=== PATIENT | female | born 1980 | race Caucasian/White ===

== ENCOUNTER 2016-09-06 02:44 | Emergency (ER) | payer BC, OTHER ==
[2016-09-06 02:55] VITALS: BP 120/92; PULSE 92; RESP 20; TEMP 97.4
[2016-09-06] MEDS ORDERED: FAMOTIDINE 20 MG TAB PO STA (03:42)
[2016-09-06] MEDS ORDERED: hydrOXYzine PAMOATE 25 MG CAP PO STA (03:43)
[2016-09-06] MEDS ORDERED: HYDROcodone/APAP 10-325MG 1 EACH TAB PO ONE (03:43)
[2016-09-06] MEDS ORDERED: MECLIZINE 12.5 MG TAB PO STA (03:43)
[2016-09-06] MEDS ORDERED: predniSONE 50 MG TAB PO STA (03:51)
--- NOTE | 2016-09-06 03:51 | ED ---
General Adult HPI - General Chief complaint: Skin/Abscess/Foreign Body Stated complaint: dizziness Time Seen by Provider: 09/06/16 03:25 Source: patient, RN notes reviewed Mode of arrival: ambulatory Limitations: no limitations - History of Present Illness Initial comments: This is a 35-year-old female history of psoriasis who presents with several complaints today. She states she had a lot of cerumen in her ears and she did use a candidal through a lot of the wax. This was about 4 days ago she's had some feeling of dizziness and been off balance since she also complains of hives that started after she had a dispute with a friend's boyfriend yesterday. She states she has burning and redness to her skin she does states she gets this when she is stressed she also complains of pain to both feet discuss the left from her psoriasis. She did run out of her pain medication. She denies any fevers chills or sweats. - Related Data Home Medications Medication Instructions Recorded Confirmed ALPRAZolam [Xanax] 1 mg PO BID 11/25/14 02/21/16 ALPRAZolam [ALPRAZolam] 1 mg PO HS PRN 02/21/16 02/21/16 Dextroamphetamine/Amphetamine 30 mg PO DAILY 02/21/16 09/06/16 [Adderall Xr] Gabapentin [Gabapentin] 600 mg PO QID 02/21/16 09/06/16 OXcarbazepine [Oxcarbazepine] 150 mg PO DAILY 02/21/16 09/06/16 PARoxetine HCL [Paxil] 40 mg PO DAILY 02/21/16 09/06/16 Previous Rx's Medication Instructions Recorded Cyclobenzaprine [Flexeril] 10 mg PO TID PRN #15 tab 02/21/16 HYDROcodone/APAP 10-325MG [[place] 1 tab PO Q6H PRN #20 tab 09/06/16 10-325] Meclizine [Antivert] 25 mg PO TID #20 tab 09/06/16 hydrOXYzine HCL [Atarax] 25 mg PO QID PRN #30 tab 09/06/16 predniSONE 20 mg PO BID #10 tab 09/06/16 Allergies Allergy/AdvReac Type Severity Reaction Status Date / Time amoxicillin Allergy Unknown Verified 09/06/16 02:55 aripiprazole [From Abilify] Allergy Unknown Verified 09/06/16 02:55 ibuprofen [From Motrin] AdvReac Unknown Verified 09/06/16 02:55 Review of Systems ROS Statement: Those systems with pertinent positive or pertinent negative responses have been documented in the HPI. ROS Other: All systems not noted in ROS Statement are negative. Past Medical History Past Medical History: No Reported History, Skin Disorder Additional Past Medical History / Comment(s): carpel tunnel (L) wrist. bells palsey, psoriasis History of Any Multi-Drug Resistant Organisms: None Reported Past Surgical History: No Surgical Hx Reported Past Psychological History: ADD/ADHD, Anxiety, Bipolar Smoking Status: Current every day smoker Past Alcohol Use History: Occasional Past Drug Use History: None Reported General Exam - General Exam Comments Initial Comments: Is a well-developed well-nourished awake alert oriented history female Limitations: no limitations General appearance: alert, in no apparent distress, anxious Head exam: Present: atraumatic, normocephalic, normal inspection Eye exam: Present: normal appearance, PERRL, EOMI. Absent: scleral icterus, conjunctival injection, periorbital swelling ENT exam: Present: mucous membranes moist, other (Examination of the auditory canals reveals some cerumen is present. No drainage seen otherwise.) Neck exam: Present: normal inspection. Absent: tenderness, meningismus, lymphadenopathy Respiratory exam: Present: normal lung sounds bilaterally. Absent: respiratory distress, wheezes, rales, rhonchi, stridor Cardiovascular Exam: Present: regular rate, normal rhythm, normal heart sounds. Absent: systolic murmur, diastolic murmur, rubs, gallop, clicks Extremities exam: Present: full ROM, tenderness, normal capillary refill, other (A marked amount of callus noted on the heels and feet consistent with severe psoriasis. No definite open wounds are seen though she did complain cracks in the skin.) Back exam: Absent: tenderness Neurological exam: Present: alert, oriented X3, CN II-XII intact Psychiatric exam: Present: normal affect, normal mood Skin exam: Present: warm, dry, other (Her theme as noted also the lichenification is noted on the feet) Course Vital Signs 09/06/16 02:49 Temperature 97.4 F L Pulse Rate 92 Respiratory 20 Rate Blood Pressure 120/92 O2 Sat by Pulse 99 Oximetry Medical Decision Making - Medical Decision Making Patient will be placed on treatment for the hives and pain that she has her feet. She is a follow-up with her doctor return when necessary. Patient wants to try using candles in her ears again she will do this at home. Some of the presentation is consistent with vertigo Disposition Clinical Impression: Urticaria, Vertigo, Foot pain, bilateral, Psoriasis Disposition: HOME SELF-CARE Condition: Good Instructions: Vertigo (ED), Benign Paroxysmal Positional Vertigo (ED), Urticaria (ED), Arthralgia (ED), Psoriasis (ED) Prescriptions: HYDROcodone/APAP 10-325MG [[place] 10-325] 1 tab PO Q6H PRN #20 tab PRN Reason: Pain Meclizine [Antivert] 25 mg PO TID #20 tab hydrOXYzine HCL [Atarax] 25 mg PO QID PRN #30 tab PRN Reason: Rash predniSONE 20 mg PO BID #10 tab
== END 2016-09-06 04:02 | disposition home or self-care (01) ==
LOC: EC 02:44
DX: R42 Dizziness and giddiness (principal); L50.9 Urticaria, unspecified; L40.9 Psoriasis, unspecified; M79.672 Pain in left foot; M79.671 Pain in right foot; F31.9 Bipolar disorder, unspecified; F90.9 Attention-deficit hyperactivity disorder, unspecified type; F41.9 Anxiety disorder, unspecified; F17.200 Nicotine dependence, unspecified, uncomplicated; Z79.899 Other long term (current) drug therapy; Z88.0 Allergy status to penicillin; Z88.8 Allergy status to other drugs, medicaments and biological substances
CPT/HCPCS: 99283; J7512

== ENCOUNTER 2016-12-31 18:36 | Emergency (ER) | payer BC ==
[2016-12-31 19:00] VITALS: BP 194/96; PULSE 93; RESP 18; TEMP 97.8
--- NOTE | 2016-12-31 19:20 | ED ---
General Adult HPI - General Chief complaint: Extremity Problem,Nontraumatic Stated complaint: PAIN IN FEET AND BACK Time Seen by Provider: 12/31/16 19:01 Source: patient, RN notes reviewed Mode of arrival: ambulatory Limitations: no limitations - History of Present Illness Initial comments: 36-year-old female presented emergency department with chief complaint of chronic pain. Patient is chronically pain, back pain. Patient states that she' s had increased pain last few days with no injury. Patient denies any bowel bladder incontinence or retention. Patient states she has feet pain from Ross bite. Patient states that she has low back pain in which she uses see pain management. Patient denies any abdominal pain no chest pain or shortness breath. - Related Data Home Medications Medication Instructions Recorded Confirmed ALPRAZolam [Xanax] 1 mg PO BID 11/25/14 02/21/16 ALPRAZolam [ALPRAZolam] 1 mg PO HS PRN 02/21/16 02/21/16 Dextroamphetamine/Amphetamine 30 mg PO DAILY 02/21/16 09/06/16 [Adderall Xr] Gabapentin [Gabapentin] 600 mg PO QID 02/21/16 09/06/16 OXcarbazepine [Oxcarbazepine] 150 mg PO DAILY 02/21/16 09/06/16 PARoxetine HCL [Paxil] 40 mg PO DAILY 02/21/16 09/06/16 Previous Rx's Medication Instructions Recorded Cyclobenzaprine [Flexeril] 10 mg PO TID PRN #15 tab 02/21/16 HYDROcodone/APAP 10-325MG [[place] 1 tab PO Q6H PRN #20 tab 09/06/16 10-325] Meclizine [Antivert] 25 mg PO TID #20 tab 09/06/16 hydrOXYzine HCL [Atarax] 25 mg PO QID PRN #30 tab 09/06/16 predniSONE 20 mg PO BID #10 tab 09/06/16 Acetaminophen-Codeine 300-30mg 1 tab PO Q4H PRN #20 tablet 12/31/16 [Tylenol #3] methylPREDNISolone [Medrol Dose 4 mg PO DIRECTED #1 pack 12/31/16 Pack] Allergies Allergy/AdvReac Type Severity Reaction Status Date / Time amoxicillin Allergy Unknown Verified 12/31/16 19:00 aripiprazole [From Abilify] Allergy Unknown Verified 12/31/16 19:00 ibuprofen [From Motrin] AdvReac Unknown Verified 12/31/16 19:00 Review of Systems ROS Statement: Those systems with pertinent positive or pertinent negative responses have been documented in the HPI. ROS Other: All systems not noted in ROS Statement are negative. Past Medical History Past Medical History: No Reported History, Skin Disorder Additional Past Medical History / Comment(s): carpel tunnel (L) wrist. bells palsey, psoriasis History of Any Multi-Drug Resistant Organisms: None Reported Past Surgical History: No Surgical Hx Reported Past Psychological History: ADD/ADHD, Anxiety, Bipolar Smoking Status: Current every day smoker Past Alcohol Use History: Occasional Past Drug Use History: None Reported, Marijuana General Exam Limitations: no limitations General appearance: alert, in no apparent distress Head exam: Present: atraumatic, normocephalic, normal inspection Respiratory exam: Present: normal lung sounds bilaterally. Absent: respiratory distress, wheezes, rales, rhonchi, stridor Cardiovascular Exam: Present: regular rate, normal rhythm, normal heart sounds. Absent: systolic murmur, diastolic murmur, rubs, gallop, clicks GI/Abdominal exam: Present: soft, normal bowel sounds. Absent: distended, tenderness, guarding, rebound, rigid Extremities exam: Present: other (Bilateral feet extensive callus seen with no lesions or sores neurovascular intact patient is full strength of lower extremities, ) Back exam: Present: full ROM Neurological exam: Present: reflexes normal. Absent: motor sensory deficit Skin exam: Present: warm, dry, intact, normal color. Absent: rash Course Vital Signs 12/31/16 18:57 Temperature 97.8 F Pulse Rate 93 Respiratory 18 Rate Blood Pressure 194/96 O2 Sat by Pulse 100 Oximetry Medical Decision Making - Medical Decision Making 36-year-old female presented emergency department for chronic pain. Patient is no acute injuries and no neurological deficits. Patient has no red flag symptoms. Patient denies that she see her primary care physician for management of her chronic conditions is no acute conditions at this time. Patient is scheduled to see pain management. Disposition Clinical Impression: Chronic pain Disposition: HOME SELF-CARE Condition: Stable Instructions: Chronic Back Pain (ED) Additional Instructions: Please return to the Emergency Department if symptoms worsen or any other concerns. Prescriptions: Acetaminophen-Codeine 300-30mg [Tylenol #3] 1 tab PO Q4H PRN #20 tablet PRN Reason: pain methylPREDNISolone [Medrol Dose Pack] 4 mg PO DIRECTED #1 pack Referrals: Mark Cha MD [Primary Care Provider] - 1-2 days Time of Disposition: 19:20
== END 2016-12-31 19:26 | disposition home or self-care (01) ==
LOC: EC 18:36
DX: G89.29 Other chronic pain (principal); M54.5 Low back pain; L84 Corns and callosities; F32.9 Major depressive disorder, single episode, unspecified; F41.9 Anxiety disorder, unspecified; F90.9 Attention-deficit hyperactivity disorder, unspecified type; F17.200 Nicotine dependence, unspecified, uncomplicated; Z79.899 Other long term (current) drug therapy; Z88.0 Allergy status to penicillin; Z88.6 Allergy status to analgesic agent; Z88.8 Allergy status to other drugs, medicaments and biological substances
CPT/HCPCS: 99283

== ENCOUNTER 2017-07-19 01:59 | Emergency (ER) | payer OTHER ==
[2017-07-19] MEDS ORDERED: KETOROLAC 60 MG/2 ML VIAL IM STA (02:58)
[2017-07-19] MEDS ORDERED: ORPHENADRINE 30 MG/ML 2 ML VIAL IM STA (02:58)
--- NOTE | 2017-07-19 03:43 | XR ---
EXAM: XR Thoracic Spine, 3 Views CLINICAL HISTORY: Status post trauma. TECHNIQUE: Frontal, lateral and swimmer's views of the thoracic spine. COMPARISON: No relevant prior studies available. FINDINGS: Vertebrae: Unremarkable. No acute fracture. Normal alignment. Disc spaces: No acute findings. No significant narrowing. Soft tissues: Unremarkable. IMPRESSION: Normal thoracic spine x-rays.
--- NOTE | 2017-07-19 03:50 | ED ---
Back Pain HPI - General Chief Complaint: Back Pain/Injury Stated Complaint: fall,back pain Time Seen by Provider: 07/19/17 02:11 Source: patient, RN notes reviewed, old records reviewed Limitations: no limitations - History of Present Illness Initial Comments: Pt is a 36 year old female with CC of acute exacerbation of chronic back pain. Patient had fallen out of her friends truck 2 days ago and twisted her back. She denies any other injury related to the fall. No head injury. Patient reports that she has pain in her mid back and shoulders, worse with movement. She ahs been taking motrin and naproxen with little relief. She diens any other symptoms. - Related Data Previous Rx's Medication Instructions Recorded Omeprazole 40 mg PO DAILY #20 capsule. 06/05/17 Ondansetron Odt [Zofran Odt] 4 mg PO Q8HR PRN #12 tab 06/05/17 Acetaminophen-Codeine 300-30mg 1 tab PO Q6H PRN #12 tablet 07/19/17 [Tylenol #3] Cyclobenzaprine [Flexeril] 10 mg PO TID #12 tab 07/19/17 Ondansetron Odt [Zofran Odt] 4 mg PO Q8HR PRN #12 tab 07/19/17 Allergies Allergy/AdvReac Type Severity Reaction Status Date / Time amoxicillin Allergy Unknown Verified 07/19/17 02:07 aripiprazole [From Abilify] Allergy Unknown Verified 07/19/17 02:07 ibuprofen [From Motrin] AdvReac Unknown Verified 07/19/17 02:07 Review of Systems ROS Statement: Those systems with pertinent positive or pertinent negative responses have been documented in the HPI. ROS Other: All systems not noted in ROS Statement are negative. Past Medical History Past Medical History: No Reported History, Skin Disorder Additional Past Medical History / Comment(s): carpel tunnel (L) wrist. bells palsey, psoriasis, degenerative disc disease. History of Any Multi-Drug Resistant Organisms: None Reported Past Surgical History: No Surgical Hx Reported Past Psychological History: ADD/ADHD, Anxiety, Bipolar Smoking Status: Current every day smoker Past Alcohol Use History: Occasional Past Drug Use History: Marijuana General Exam - General Exam Comments Initial Comments: This is a 36 year old female no distress Limitations: no limitations General appearance: alert, in no apparent distress Head exam: Present: atraumatic, normocephalic, normal inspection Eye exam: Present: normal appearance, PERRL, EOMI. Absent: scleral icterus, conjunctival injection, periorbital swelling ENT exam: Present: normal exam, mucous membranes moist Neck exam: Present: normal inspection. Absent: tenderness, meningismus, lymphadenopathy Respiratory exam: Present: normal lung sounds bilaterally. Absent: respiratory distress, wheezes, rales, rhonchi, stridor Cardiovascular Exam: Present: regular rate, normal rhythm, normal heart sounds. Absent: systolic murmur, diastolic murmur, rubs, gallop, clicks GI/Abdominal exam: Present: soft, normal bowel sounds. Absent: distended, tenderness, guarding, rebound, rigid Extremities exam: Present: normal inspection, full ROM, normal capillary refill. Absent: tenderness, pedal edema, joint swelling, calf tenderness Back exam: Present: normal inspection, tenderness (Patient had mid thoracic tenderness) Neurological exam: Present: alert, oriented X3, CN II-XII intact Psychiatric exam: Present: normal affect, normal mood Skin exam: Present: warm, dry, intact, normal color. Absent: rash Course Vital Signs 07/19/17 07/19/17 02:02 04:11 Temperature 97.5 F L 98.6 F Pulse Rate 102 H 91 Respiratory 17 18 Rate Blood Pressure 136/83 160/88 O2 Sat by Pulse 100 96 Oximetry Medical Decision Making - Medical Decision Making This is a 36 year old female with acute exacerbation of chronic back pain after she fell out of a truck 2 days ago. No paresths=esias, and she has tenderness of her mid thoracic back. Patinet Thoracic spine xrays are unremarkable. She was given Toradol and norflex. Will be discharged with flexeril and pain medication. Discussed return parameters and follow up [facility] PCP. - Radiology Data Radiology results: report reviewed Thoracic spine is within normal limits. Disposition Clinical Impression: Spasm of thoracic back muscle Disposition: HOME SELF-CARE Condition: Good Instructions: Muscle Spasm (ED), Back Pain (ED) Additional Instructions: Patient advised to apply warm compresses over the back for 20 minutes, at least 4-5 times a day. Patient should take the anti-inflammatory medication such as Motrin or Tylenol, he did take muscle fractures and pain medicine as prescribed. Follow-up with primary care physician. Patient emergency department if any alarming signs or symptoms occur. Prescriptions: Acetaminophen-Codeine 300-30mg [Tylenol #3] 1 tab PO Q6H PRN #12 tablet PRN Reason: Pain Cyclobenzaprine [Flexeril] 10 mg PO TID #12 tab Ondansetron Odt [Zofran Odt] 4 mg PO Q8HR PRN #12 tab PRN Reason: Nausea Referrals: None,Stated [Primary Care Provider] - 1-2 days Time of Disposition: 03:48
[2017-07-19] MEDS ORDERED: ACET/COD 300 MG/30 MG STARTER PACK 6 TAB BTL PO STA (03:57)
[2017-07-19] MEDS ORDERED: ONDANSETRON 4 MG ODT STARTER PACK 2 TAB BTL PO STA (03:57)
[2017-07-19 04:14] VITALS: BP 160/88; PULSE 91; RESP 18; TEMP 98.6
== END 2017-07-19 04:13 | disposition home or self-care (01) ==
LOC: EC 01:59
DX: M62.830 Muscle spasm of back (principal); F17.200 Nicotine dependence, unspecified, uncomplicated; Z88.0 Allergy status to penicillin; Z88.6 Allergy status to analgesic agent; Z88.8 Allergy status to other drugs, medicaments and biological substances; X50.1XXA Overexertion from prolonged static or awkward postures, initial encounter
CPT/HCPCS: 72070; 99284; 96372 ×2; J2360; J1885; S0119

== ENCOUNTER 2017-11-06 13:47 | Emergency (ER) | payer OTHER ==
[2017-11-06 14:12] VITALS: RESP 18
[2017-11-06] MEDS ORDERED: KETOROLAC 60 MG/2 ML VIAL IM STA (15:57)
[2017-11-06] MEDS ORDERED: HYDROcodone/APAP 5-325MG 1 EACH TAB PO STA (15:57)
--- NOTE | 2017-11-06 16:31 | ED ---
General Adult HPI - General Chief complaint: Extremity Problem,Nontraumatic Stated complaint: Leg numbness Time Seen by Provider: 11/06/17 15:41 Source: patient Mode of arrival: wheelchair Limitations: no limitations - Related Data Home Medications Medication Instructions Recorded Confirmed ALPRAZolam [Xanax] 1 mg PO TID PRN 11/06/17 11/06/17 Dextroamphetamine/Amphetamine 15 mg PO BID 11/06/17 11/06/17 [Adderall Xr] Gabapentin [Neurontin] 300 mg PO TID 11/06/17 11/06/17 OXcarbazepine [Trileptal] 150 mg PO BID 11/06/17 11/06/17 PARoxetine [Paxil] 20 mg PO DAILY 11/06/17 11/06/17 Previous Rx's Medication Instructions Recorded Sulfamethox-Tmp 800-160Mg [Bactrim 2 tab PO Q12HR #40 tab 11/06/17 DS 800-160 mg] Triamcinolone 0.5% Cream [Kenalog 1 applic TOPICAL BID #1 tube 11/06/17 0.5% Cream] predniSONE 50 mg PO DAILY #5 tab 11/06/17 Allergies Allergy/AdvReac Type Severity Reaction Status Date / Time amoxicillin Allergy Unknown Verified 11/06/17 16:02 aripiprazole [From Abilify] Allergy Unknown Verified 11/06/17 16:02 ibuprofen [From Motrin] AdvReac Unknown Verified 11/06/17 16:02 Review of Systems ROS Statement: Those systems with pertinent positive or pertinent negative responses have been documented in the HPI. ROS Other: All systems not noted in ROS Statement are negative. Past Medical History Past Medical History: Skin Disorder Additional Past Medical History / Comment(s): carpel tunnel (L) wrist. bells palsey, psoriasis, degenerative disc disease. History of Any Multi-Drug Resistant Organisms: None Reported Past Surgical History: No Surgical Hx Reported Past Psychological History: ADD/ADHD, Anxiety, Bipolar, Depression Smoking Status: Current every day smoker Past Alcohol Use History: Occasional Past Drug Use History: Marijuana General Exam Limitations: no limitations General appearance: alert, in no apparent distress Head exam: Present: atraumatic, normocephalic, normal inspection Eye exam: Present: normal appearance, PERRL, EOMI. Absent: scleral icterus, conjunctival injection, periorbital swelling ENT exam: Present: normal exam, mucous membranes moist Neck exam: Present: normal inspection. Absent: tenderness, meningismus, lymphadenopathy Respiratory exam: Present: normal lung sounds bilaterally. Absent: respiratory distress, wheezes, rales, rhonchi, stridor Cardiovascular Exam: Present: regular rate, normal rhythm, normal heart sounds. Absent: systolic murmur, diastolic murmur, rubs, gallop, clicks GI/Abdominal exam: Present: soft, normal bowel sounds. Absent: distended, tenderness, guarding, rebound, rigid Extremities exam: Present: normal inspection, full ROM, normal capillary refill. Absent: tenderness, pedal edema, joint swelling, calf tenderness Back exam: Present: normal inspection Neurological exam: Present: alert, oriented X3, CN II-XII intact Psychiatric exam: Present: normal affect, normal mood Skin exam: Present: warm, dry, intact, normal color. Absent: rash Course Vital Signs 11/06/17 14:06 Temperature 97.9 F Pulse Rate 103 H Respiratory 18 Rate Blood Pressure 149/83 O2 Sat by Pulse 97 Oximetry Medical Decision Making - Lab Data Lab Results 11/06/17 11/06/17 Range/Units 14:48 14:48 Urine Color Yellow Urine Appearance Cloudy H (Clear) Urine pH 5.5 (5.0-8.0) Ur Specific [place] 1.026 (1.001-1.035) Urine Protein 1+ H (Negative) Urine Glucose (UA) Negative (Negative) Urine Ketones Negative (Negative) Urine Blood Moderate H (Negative) Urine Nitrite Negative (Negative) Urine Bilirubin Negative (Negative) Urine Urobilinogen <2.0 (<2.0) mg/dL Ur Leukocyte Esterase Large H (Negative) Urine RBC 2 (0-5) /hpf Urine WBC 25 H (0-5) /hpf Ur Squamous Epith Cells 31 H (0-4) /hpf Urine Bacteria Few H (None) /hpf Urine Mucus Rare H (None) /hpf Urine HCG, Qual Not Detected (Not Detectd) Disposition Clinical Impression: Back pain, Acute exacerbation of chronic low back pain, Psoriasis Disposition: HOME SELF-CARE Condition: Good Instructions: Psoriasis (ED) Prescriptions: predniSONE 50 mg PO DAILY #5 tab Sulfamethox-Tmp 800-160Mg [Bactrim DS 800-160 mg] 2 tab PO Q12HR #40 tab Triamcinolone 0.5% Cream [Kenalog 0.5% Cream] 1 applic TOPICAL BID #1 tube Referrals: Oumou Waite MD [STAFF PHYSICIAN] - 1-2 days Lacey Waite MD [STAFF PHYSICIAN] - 1-2 days
[2017-11-06 16:57] LABS: Appearance,Urine Cloudy (Clear); Bacteria,Urine Few /hpf; Bilirubin,Urine Negative (Negative); Blood,Urine Moderate (Negative); Color,Urine Yellow; Glucose,Urine (UA) Negative (Negative); Ketones,Urine Negative (Negative); Leukocyte Esterase,Urine Large (Negative); Mucus,Urine Rare /hpf; Nitrite,Urine Negative (Negative); PH, Urine 5.5 (5.0-8.0); Protein,Urine 1+ (Negative); RBC,Urine 2 /hpf (0-5); Specific Gravity,Urine 1.026 (1.001-1.035); Squamous Epithelial Cell,Urine 31 /hpf (0-4); Urobilinogen,Urine <2.0 mg/dL (<2.0); WBC,Urine 25 /hpf (0-5)
--- NOTE | 2017-11-06 17:42 | CT ---
EXAMINATION TYPE: CT lumbar spine wo con DATE OF EXAM: 11/06/2017 5:33 PM COMPARISON: MRI lumbar spine May 14, 2011. HISTORY: Left leg numbness and swelling. CT DLP: 954.7 mGycm Automated exposure control for dose reduction was used. Unenhanced CT of the lumbar spine was performed. Bone and soft tissue window settings are submitted as well as coronal and sagittal reconstructions. 5 lumbar type vertebra are redemonstrated. Lumbar spine show satisfactory alignment without evidence of acute fracture or dislocation. Vertebral body heights and disc space heights are maintained. Poste rior disc herniations are now present on CT at L3-L4 and L4-L5 levels mildly effaces the anterior the rosalba sac on sagittal images. Axial images show the T12-L1, L1-L2, and L2-L3 levels also appear within normal limits. Axial images at L3-L4 level shows new central disc protrusion effaces the anterior thecal sac and ext ends image 65, bilateral neuroforamina remain patent. Axial images at L4-L5 level redemonstrates central disc protrusion effaces the anterior thecal sac an d neck imaging 81, bilateral neural foramina remain patent. Axial images at L5-S1 level are felt to appear within normal limits. No suspicious retroperitoneal findings are seen. IMPRESSION: Redemonstration of degenerative changes L4-L5 level. New small disc herniation L3-L4 level. No signif icant findings seen to account for patient's left-sided radiculopathy symptoms however.
--- NOTE | 2017-11-06 17:43 | CT ---
EXAMINATION TYPE: CT sacrum wo con DATE OF EXAM: 11/06/2017 COMPARISON: NONE HISTORY: Left leg numbness and swelling. Sacral pain. CT DLP: 954.7 mGycm Automated exposure control for dose reduction was used. FINDINGS: Sacrum is intact. No acute fracture or dislocation is seen. Sacroiliac joints are symmetric and felt within normal limits. Sacral alae are unremarkable bilaterally. Visualized pelvis shows partial visualization of central metallic IUD in uterus. No suspicious bowel dilatation is seen. No concerning pelvic fluid collection is noted. IMPRESSION: NO SUSPICIOUS ACUTE OR CHRONIC FINDING IDENTIFIED.
[2017-11-06] MEDS ORDERED: SULFAMETHOX-TMP 800-160MG 1 EACH TAB PO STA (18:13)
[2017-11-06] MEDS ORDERED: DEXAMETHASONE SOD PHOSPHATE 10 MG/ML 1 ML VIAL IM STA (18:13)
[2017-11-06 18:55] VITALS: BP 140/92; PULSE 84
[2017-11-06 18:56] VITALS: TEMP 97.8
== END 2017-11-06 19:11 | disposition home or self-care (01) ==
LOC: EC 13:47
DX: M54.5 Low back pain (principal); G89.29 Other chronic pain; L40.9 Psoriasis, unspecified; F90.9 Attention-deficit hyperactivity disorder, unspecified type; F31.9 Bipolar disorder, unspecified; F41.9 Anxiety disorder, unspecified; F17.200 Nicotine dependence, unspecified, uncomplicated; Z79.899 Other long term (current) drug therapy; Z88.0 Allergy status to penicillin; Z88.6 Allergy status to analgesic agent; Z88.8 Allergy status to other drugs, medicaments and biological substances; Z53.29 Procedure and treatment not carried out because of patient's decision for other reasons
CPT/HCPCS: 81001; 81025; 72131; 72192; 99284; 96372; J1885

== ENCOUNTER 2018-05-22 18:57 | Emergency (ER) | payer OTHER ==
[2018-05-22 19:22] VITALS: TEMP 97.5
[2018-05-22] MEDS ORDERED: ONDANSETRON 4 MG/2 ML VIAL IVP STA (20:06)
[2018-05-22] MEDS ORDERED: SODIUM CHLORIDE 0.9% 1,000 ML IV STA (20:06)
[2018-05-22] MEDS ORDERED: diphenhydrAMINE 50 MG/ML 1 ML VIAL IVP STA (20:07)
[2018-05-22] MEDS ORDERED: methylPREDNISolone SOD SUCCI 125 MG/2 ML VIAL IV STA (20:07)
[2018-05-22] MEDS ORDERED: MORPHINE SULFATE 4 MG/ML SYRINGE IVP STA (20:11)
[2018-05-22 20:51] LABS: Basophils % (A) 1 %; Eosinophils # (A) 0.2 k/uL (0-0.7); Eosinophils % (A) 3 %; HCT 36.8 % (34.0-46.0); HGB 12.1 gm/dL (11.4-16.0); Lymphocytes # (A) 2.1 k/uL (1.0-4.8); Lymphocytes % (A) 26 %; MCH 29.9 pg (25.0-35.0); MCHC 32.9 g/dL (31.0-37.0); MCV 90.9 fL (80.0-100.0); Mean Platelet Volume 7.5; Monocytes # (A) 0.4 k/uL (0-1.0); Monocytes % (A) 6 %; Neutrophils # (A) 5.1 k/uL (1.3-7.7); Neutrophils % (A) 64 %; Platelet Count 282 k/uL (150-450); RBC 4.05 m/uL (3.80-5.40); RDW 13.8 % (11.5-15.5)
[2018-05-22 21:03] LABS: ALT 31 U/L (9-52); AST 24 U/L (14-36); Albumin 4.4 g/dL (3.5-5.0); Alkaline Phosphatase 42 U/L (38-126); Amylase 44 U/L (30-110); Anion Gap 9 mmol/L; Blood Urea Nitrogen 15 mg/dL (7-17); Calcium 9.7 mg/dL (8.4-10.2); Carbon Dioxide 26 mmol/L (22-30); Chloride 104 mmol/L (98-107); Glucose 89 mg/dL (74-99); Lipase 34 U/L (23-300); Potassium 3.9 mmol/L (3.5-5.1); Sodium 139 mmol/L (137-145); Total Bilirubin 0.8 mg/dL (0.2-1.3); Total Protein 7.4 g/dL (6.3-8.2)
--- NOTE | 2018-05-22 21:08 | ED ---
General Adult HPI - General Chief complaint: Skin/Abscess/Foreign Body Stated complaint: swollen glands, rash Time Seen by Provider: 05/22/18 19:26 Source: patient Mode of arrival: ambulatory Limitations: no limitations - History of Present Illness Initial comments: 37-year-old female patient presents to the emergency department today for multiple complaints. Patient is complaining of swelling to the right posterior neck. She is also reporting a swollen area to the right axilla, as well as generalized rash with burning and itching. Patient states that she noticed the swelling to the posterior neck approximately 3-4 days ago. States that the area is not painful to touch. She denies any injury. States that she has also noticed a swollen "lump" to the right axilla that didn't drain some purulent fluid earlier yesterday. She says she has had a history of psoriasis and that she has a generalized rash that is burning and itching, states she has been getting his rest and she was a child. States it is causing her hands to dry out become cracked and painful. Patient denies any fevers or chills with this. States that she did have some nausea and vomiting today. States that she did take the nausea medicine at home but it didn't seem to help. States that she does have chronic nausea but doesn't usually have vomiting to this degree. States that she also has had diarrhea throughout the day today. She denies any hematemesis, hematochezia, or melena. Denies any fevers or chills with these symptoms. Patient states she has chronic back pain and foot pain for which she used to take Percocet however she is now longer receive these. States that she has been unable to sleep because her pain has been so bad. States that she does take Benadryl on a daily basis to assist with sleeping it does not seem to help her rash all. She denies any new soaps, lotions, creams, detergents, or environments. Patient denies any recent shortness breath, chest pain, abdominal pain, dizziness, weakness, hematuria, dysuria, urinary urgency, urinary frequency, headache, visual changes, or any other complaints. - Related Data Home Medications Medication Instructions Recorded Confirmed ALPRAZolam [Xanax] 1 mg PO TID PRN 11/06/17 11/06/17 Dextroamphetamine/Amphetamine 15 mg PO BID 11/06/17 11/06/17 [Adderall Xr] Gabapentin [Neurontin] 300 mg PO TID 11/06/17 11/06/17 OXcarbazepine [Trileptal] 150 mg PO BID 11/06/17 11/06/17 PARoxetine [Paxil] 20 mg PO DAILY 11/06/17 11/06/17 Previous Rx's Medication Instructions Recorded Sulfamethox-Tmp 800-160Mg [Bactrim 2 tab PO Q12HR #40 tab 11/06/17 DS 800-160 mg] Triamcinolone 0.5% Cream [Kenalog 1 applic TOPICAL BID #1 tube 11/06/17 0.5% Cream] predniSONE 50 mg PO DAILY #5 tab 11/06/17 Allergies Allergy/AdvReac Type Severity Reaction Status Date / Time amoxicillin Allergy Unknown Verified 05/22/18 19:22 aripiprazole [From Abilify] Allergy Unknown Verified 05/22/18 19:22 ibuprofen [From Motrin] AdvReac Unknown Verified 05/22/18 19:22 Review of Systems ROS Statement: Those systems with pertinent positive or pertinent negative responses have been documented in the HPI. ROS Other: All systems not noted in ROS Statement are negative. Past Medical History Past Medical History: Skin Disorder Additional Past Medical History / Comment(s): carpel tunnel (L) wrist. bells palsey, psoriasis, degenerative disc disease. History of Any Multi-Drug Resistant Organisms: None Reported Past Surgical History: No Surgical Hx Reported Past Psychological History: ADD/ADHD, Anxiety, Bipolar, Depression Smoking Status: Current every day smoker Past Alcohol Use History: None Reported Past Drug Use History: Marijuana General Exam Limitations: no limitations General appearance: alert, in no apparent distress, other (This is a well- developed, adult female patient in no acute distress. Vital signs upon presentation are temperature 97.5F, pulse 108, respirations 18, blood pressure 145/104, pulse ox 97% on room air.) Eye exam: Present: normal appearance, PERRL, EOMI. Absent: scleral icterus, conjunctival injection, periorbital swelling ENT exam: Present: normal exam, normal oropharynx, mucous membranes moist, other (Evidence of lymphadenopathy to the right postauricular region, no redness ). Absent: TM's normal bilaterally (Bilateral cerumen impaction) Neck exam: Present: normal inspection. Absent: tenderness, meningismus, lymphadenopathy Respiratory exam: Present: normal lung sounds bilaterally. Absent: respiratory distress, wheezes, rales, rhonchi, stridor Cardiovascular Exam: Present: regular rate, normal rhythm, normal heart sounds. Absent: systolic murmur, diastolic murmur, rubs, gallop, clicks GI/Abdominal exam: Present: soft, normal bowel sounds. Absent: distended, tenderness, guarding, rebound, rigid Neurological exam: Present: alert, oriented X3, CN II-XII intact Psychiatric exam: Present: normal affect, normal mood Skin exam: Present: warm, dry, intact, normal color, rash (Generalized erythematous scaly rash. worse over the hands and feet) Course Vital Signs 05/22/18 19:20 Temperature 97.5 F L Pulse Rate 108 H Respiratory 18 Rate Blood Pressure 145/104 O2 Sat by Pulse 97 Oximetry Medical Decision Making - Medical Decision Making 37-year-old female patient presents to the emergency department today with multiple complaints including swollen lymph nodes, rash, vomiting, diarrhea, and chronic pain issues. Physical examination did reveal 2 swollen lymph nodes to the right postauricular area. Patient had generalized erythematous, scaly rash. Abdomen soft and nontender. Patient is afebrile. Labs reviewed and are unremarkable. I was going to prescribe patient steroid cream for the rash however she states she does have is at home and will use it. Patient does have rash extending up onto the neck, this could be a cause for the the enlarged lymph nodes however did instruct her to follow-up with her primary care physician for monitoring of the lymph nodes for possible biopsy. Patient has had no vomiting or diarrhea. The department. Patient symptoms consistent with gastroenteritis. She is instructed to take her home nausea medication as directed. Upon reevaluation patient was feeling much improved and does feel comfortable being discharged home at this time. She does have appointment with [facility] tomorrow. I instructed her to follow up with dermatology for further evaluation and management of her chronic rash. She is instructed to follow up with her primary care physician for recheck in 1-2 days. Return parameters were discussed in detail. She verbalizes understanding and agrees with this plan. - Lab Data Result diagrams: 05/22/18 20:40 05/22/18 20:40 Lab Results 10/21/18 10/21/18 Range/Units 20:40 20:40 WBC 8.0 (3.8-10.6) k/uL RBC 4.05 (3.80-5.40) m/uL Hgb 12.1 (11.4-16.0) gm/dL Hct 36.8 (34.0-46.0) % MCV 90.9 (80.0-100.0) fL MCH 29.9 (25.0-35.0) pg MCHC 32.9 (31.0-37.0) g/dL RDW 13.8 (11.5-15.5) % Plt Count 282 (150-450) k/uL Neutrophils % 64 % Lymphocytes % 26 % Monocytes % 6 % Eosinophils % 3 % Basophils % 1 % Neutrophils # 5.1 (1.3-7.7) k/uL Lymphocytes # 2.1 (1.0-4.8) k/uL Monocytes # 0.4 (0-1.0) k/uL Eosinophils # 0.2 (0-0.7) k/uL Basophils # 0.0 (0-0.2) k/uL Sodium 139 (137-145) mmol/L Potassium 3.9 (3.5-5.1) mmol/L Chloride 104 (98-107) mmol/L Carbon Dioxide 26 (22-30) mmol/L Anion Gap 9 mmol/L BUN 15 (7-17) mg/dL Creatinine 0.71 (0.52-1.04) mg/dL Est GFR (CKD-EPI)AfAm >90 (>60 ml/min/1.73 sqM) Est GFR (CKD-EPI)NonAf >90 (>60 ml/min/1.73 sqM) Glucose 89 (74-99) mg/dL Calcium 9.7 (8.4-10.2) mg/dL Total Bilirubin 0.8 (0.2-1.3) mg/dL AST 24 (14-36) U/L ALT 31 (9-52) U/L Alkaline Phosphatase 42 (38-126) U/L Total Protein 7.4 (6.3-8.2) g/dL Albumin 4.4 (3.5-5.0) g/dL Amylase 44 (30-110) U/L Lipase 34 (23-300) U/L Disposition Clinical Impression: Lymphadenopathy, Chronic pruritic rash in adult, Gastroenteritis Disposition: HOME SELF-CARE Condition: Good Instructions: Lymphadenopathy (ED), Gastroenteritis (ED), Acute Rash (ED) Additional Instructions: Follow-up with dermatology for further evaluation of the rash. Follow-up with her primary care physician for further evaluation of a swollen lymph nodes. Use your steroid cream on the rash at home, avoid applying to face or neck or genitalia. Increase fluids. Use your home nausea medication as directed. Follow-up with pain management as you have planned. Return here immediately for any new, worsening, or concerning symptoms. Is patient prescribed a controlled substance at d/c from ED?: No Referrals: None,Stated [Primary Care Provider] - 1-2 days Oumou Waite MD [STAFF PHYSICIAN] - 1-2 days Time of Disposition: 21:57
[2018-05-22] MEDS ORDERED: ACET/COD 300 MG/30 MG STARTER PACK 6 TAB BTL PO STA (22:36)
[2018-05-22 22:45] VITALS: BP 147/98; PULSE 94; RESP 16
== END 2018-05-22 22:48 | disposition home or self-care (01) ==
LOC: EC 18:57
DX: L29.8 Other pruritus (principal); K52.9 Noninfective gastroenteritis and colitis, unspecified; R59.1 Generalized enlarged lymph nodes; F41.9 Anxiety disorder, unspecified; F31.9 Bipolar disorder, unspecified; F90.9 Attention-deficit hyperactivity disorder, unspecified type; F17.200 Nicotine dependence, unspecified, uncomplicated; Z79.899 Other long term (current) drug therapy; Z88.1 Allergy status to other antibiotic agents; Z88.6 Allergy status to analgesic agent; Z88.8 Allergy status to other drugs, medicaments and biological substances
CPT/HCPCS: 36415; 80053; 82150; 83690; 85025; 99283; 96374; 96375 ×3; 96361; J2270; J1200; J2930; J2405

== ENCOUNTER 2019-10-16 23:22 | Emergency (ER) | payer OTHER ==
[2019-10-16 23:34] VITALS: RESP 18
[2019-10-16] MEDS ORDERED: ACETAMINOPHEN TAB 325 MG TAB PO STA (23:35)
[2019-10-17 00:22] LABS: ALT 22 U/L (4-34); AST 36 U/L (14-36); African American GFR (CKD) >90 (>60 ml/min/1.73 sqM); Albumin 4.9 g/dL (3.5-5.0); Alkaline Phosphatase 58 U/L (38-126); Anion Gap 10 mmol/L; Blood Urea Nitrogen 12 mg/dL (7-17); Calcium 9.8 mg/dL (8.4-10.2); Carbon Dioxide 31 mmol/L (22-30); Chloride 100 mmol/L (98-107); Glucose 95 mg/dL (74-99); Non-African American GFR(CKD) >90 (>60 ml/min/1.73 sqM); Potassium 3.8 mmol/L (3.5-5.1); Sodium 141 mmol/L (137-145); Total Bilirubin 0.7 mg/dL (0.2-1.3)
[2019-10-17 00:25] LABS: Appearance,Urine Clear (Clear); Bacteria,Urine Rare /hpf; Bilirubin,Urine Negative (Negative); Blood,Urine Negative (Negative); Color,Urine Yellow; Glucose,Urine (UA) Negative (Negative); Ketones,Urine 1+ (Negative); Leukocyte Esterase,Urine Negative (Negative); Mucus,Urine Few /hpf; Nitrite,Urine Negative (Negative); PH, Urine 6.5 (5.0-8.0); Protein,Urine 1+ (Negative); RBC,Urine <1 /hpf (0-5); Specific Gravity,Urine 1.032 (1.001-1.035); Squamous Epithelial Cell,Urine 1 /hpf (0-4); WBC,Urine 1 /hpf (0-5)
[2019-10-17 00:43] LABS: Basophils # (A) 0.1 k/uL (0-0.2); Basophils % (A) 1 %; Eosinophils # (A) 0.2 k/uL (0-0.7); Eosinophils % (A) 2 %; HCT 41.5 % (34.0-46.0); HGB 13.6 gm/dL (11.4-16.0); Lymphocytes # (A) 2.2 k/uL (1.0-4.8); Lymphocytes % (A) 22 %; MCH 29.8 pg (25.0-35.0); MCHC 32.7 g/dL (31.0-37.0); MCV 91.1 fL (80.0-100.0); Monocytes # (A) 0.6 k/uL (0-1.0); Monocytes % (A) 6 %; Neutrophils # (A) 6.7 k/uL (1.3-7.7); Neutrophils % (A) 68 %; Platelet Count 313 k/uL (150-450); RBC 4.56 m/uL (3.80-5.40); RDW 13.5 % (11.5-15.5)
--- NOTE | 2019-10-17 01:11 | ED ---
General Adult HPI - General Chief complaint: Neck Pain/Injury Stated complaint: Lump in neck Time Seen by Provider: 10/16/19 23:24 Source: patient, EMS, RN notes reviewed, old records reviewed Mode of arrival: EMS Limitations: no limitations - History of Present Illness Initial comments: 38-year-old female patient presents to the chief complaint of painful lymphadenopathy. Patient course of the last 2 weeks she has had right-sided lymphadenopathy. Patient reports that she was seen approximately 2 weeks ago and was placed antibiotics. She states this is amoxicillin. Patient reports that she continues to have swollen lymph nodes and discomfort. Denies any other complaints at this time. Systemic: Pt denies fatigue, fever/chills, rash. Pt denies weakness, night sweats, weight loss. Neuro: Pt denies headache, visual disturbances, syncope or pre-syncope. HEENT: Pt denies ocular discharge or irritation, otalgia, rhinorrhea, pharyngitis. Cardiopulmonary: Pt denies chest pain, SOB, heart palpitations, dyspnea on exertion. Abdominal/GI: Pt denies abdominal pain, n/v/d. : Pt denies dysuria, burning w/ urination, frequency/urgency. Denies new onset urinary or bowel incontinence. MSK: Pt denies myalgia, loss of strength or function in extremities. Neuro: Pt denies new onset weakness, paresthesias. - Related Data Home Medications Medication Instructions Recorded Confirmed ALPRAZolam [Xanax] 1 mg PO TID PRN 11/06/17 11/06/17 Dextroamphetamine/Amphetamine 15 mg PO BID 11/06/17 11/06/17 [Adderall Xr] Gabapentin [Neurontin] 300 mg PO TID 11/06/17 11/06/17 OXcarbazepine [Trileptal] 150 mg PO BID 11/06/17 11/06/17 PARoxetine [Paxil] 20 mg PO DAILY 11/06/17 11/06/17 Previous Rx's Medication Instructions Recorded Sulfamethox-Tmp 800-160Mg [Bactrim 2 tab PO Q12HR #40 tab 11/06/17 DS 800-160 mg] Triamcinolone 0.5% Cream [Kenalog 1 applic TOPICAL BID #1 tube 11/06/17 0.5% Cream] predniSONE 50 mg PO DAILY #5 tab 11/06/17 Allergies Allergy/AdvReac Type Severity Reaction Status Date / Time amoxicillin Allergy Unknown Verified 05/22/18 19:22 aripiprazole [From Abilify] Allergy Unknown Verified 05/22/18 19:22 ibuprofen [From Motrin] AdvReac Unknown Verified 05/22/18 19:22 Review of Systems ROS Statement: Those systems with pertinent positive or pertinent negative responses have been documented in the HPI. ROS Other: All systems not noted in ROS Statement are negative. Past Medical History Past Medical History: Skin Disorder Additional Past Medical History / Comment(s): carpel tunnel (L) wrist. bells palsey, psoriasis, degenerative disc disease. History of Any Multi-Drug Resistant Organisms: None Reported Past Surgical History: No Surgical Hx Reported Past Psychological History: ADD/ADHD, Anxiety, Bipolar, Depression Smoking Status: Current every day smoker Past Alcohol Use History: None Reported Past Drug Use History: Marijuana General Exam - General Exam Comments Initial Comments: Constitutional: NAD, AOX3, Pt has pleasant affect. HEENT: NC/AT, trachea midline, neck supple, swollen posterior auricular, anterior and posterior cervical lymphadenopathy noted right sided. No drainage noted. Mildly tender. No external skin changes. Posterior pharynx non erythematous, without exudates. External ears appear normal, without discharge. Mucous membranes moist. Eyes PERRLA, EOM intact. There is no scleral icterus. No pallor noted. Cardiopulmonary: RRR, no murmurs, rubs or gallops, no JVD noted. Lungs CTAB in anterior and posterior pratt. No peripheral edema. Abdominal exam: Abdomen soft and non-distended. Abdomen non-tender to palpation in all 4 quadrants. Bowel sounds active in LLQ. No hepatosplenomegaly. No ecchymosis Neuro: CN II-XII intact. No nuchal rigidity. No raccon eyes, no gallegos sign, no hemotympanum. No cervical spinal tenderness. MSK: No posterior calf tenderness bilaterally, homans sign negative bilaterally. Posterior tibialis and radial pulse +2 bilaterally. Sensation intact in upper and lower extremities. Full active ROM in upper and lower extremities, 5/5 stregnth. Limitations: no limitations Course Vital Signs 10/16/19 23:25 Temperature 97.6 F Pulse Rate 93 Respiratory 18 Rate Blood Pressure 143/93 O2 Sat by Pulse 98 Oximetry Medical Decision Making - Medical Decision Making 38-year-old female patient presents to the chief complaint of painful lymphadenopathy. Patient course of the last 2 weeks she has had right-sided lymphadenopathy. Patient reports that she was seen approximately 2 weeks ago and was placed antibiotics. She states this is amoxicillin. Patient reports that she continues to have swollen lymph nodes and discomfort. Denies any other complaints at this time. Patient vital signs stable, afebrile. Physical exam displayed: swollen posterior auricular, anterior and posterior cervical lymphadenopathy noted right sided. No drainage noted. Mildly tender. No external skin changes. Laboratory investigations were obtained, significant for +1 protein + ketones in urine. HCG is negative. Patient discharged with outpatient follow-up and return to ER physician worsens. Case discussed with Dr. Saunders. - Lab Data Result diagrams: 10/17/19 00:06 10/17/19 00:06 Lab Results 10/17/19 10/17/19 10/17/19 Range/Units 00:06 00:06 00:06 WBC 10.0 (3.8-10.6) k/uL RBC 4.56 (3.80-5.40) m/uL Hgb 13.6 (11.4-16.0) gm/dL Hct 41.5 (34.0-46.0) % MCV 91.1 (80.0-100.0) fL MCH 29.8 (25.0-35.0) pg MCHC 32.7 (31.0-37.0) g/dL RDW 13.5 (11.5-15.5) % Plt Count 313 (150-450) k/uL Neutrophils % 68 % Lymphocytes % 22 % Monocytes % 6 % Eosinophils % 2 % Basophils % 1 % Neutrophils # 6.7 (1.3-7.7) k/uL Lymphocytes # 2.2 (1.0-4.8) k/uL Monocytes # 0.6 (0-1.0) k/uL Eosinophils # 0.2 (0-0.7) k/uL Basophils # 0.1 (0-0.2) k/uL Sodium (137-145) mmol/L Potassium (3.5-5.1) mmol/L Chloride (98-107) mmol/L Carbon Dioxide (22-30) mmol/L Anion Gap mmol/L BUN (7-17) mg/dL Creatinine (0.52-1.04) mg/dL Est GFR (CKD-EPI)AfAm (>60 ml/min/1.73 sqM) Est GFR (CKD-EPI)NonAf (>60 ml/min/1.73 sqM) Glucose (74-99) mg/dL Calcium (8.4-10.2) mg/dL Total Bilirubin (0.2-1.3) mg/dL AST (14-36) U/L ALT (4-34) U/L Alkaline Phosphatase (38-126) U/L Total Protein (6.3-8.2) g/dL Albumin (3.5-5.0) g/dL Urine Color Yellow Urine Appearance Clear (Clear) Urine pH 6.5 (5.0-8.0) Ur Specific Meta 1.032 (1.001-1.035) Urine Protein 1+ H (Negative) Urine Glucose (UA) Negative (Negative) Urine Ketones 1+ H (Negative) Urine Blood Negative (Negative) Urine Nitrite Negative (Negative) Urine Bilirubin Negative (Negative) Urine Urobilinogen 2.0 (<2.0) mg/dL Ur Leukocyte Esterase Negative (Negative) Urine RBC <1 (0-5) /hpf Urine WBC 1 (0-5) /hpf Ur Squamous Epith Cells 1 (0-4) /hpf Urine Bacteria Rare H (None) /hpf Urine Mucus Few H (None) /hpf Urine HCG, Qual Not Detected (Not Detectd) 10/17/19 Range/Units 00:06 WBC (3.8-10.6) k/uL RBC (3.80-5.40) m/uL Hgb (11.4-16.0) gm/dL Hct (34.0-46.0) % MCV (80.0-100.0) fL MCH (25.0-35.0) pg MCHC (31.0-37.0) g/dL RDW (11.5-15.5) % Plt Count (150-450) k/uL Neutrophils % % Lymphocytes % % Monocytes % % Eosinophils % % Basophils % % Neutrophils # (1.3-7.7) k/uL Lymphocytes # (1.0-4.8) k/uL Monocytes # (0-1.0) k/uL Eosinophils # (0-0.7) k/uL Basophils # (0-0.2) k/uL Sodium 141 (137-145) mmol/L Potassium 3.8 (3.5-5.1) mmol/L Chloride 100 (98-107) mmol/L Carbon Dioxide 31 H (22-30) mmol/L Anion Gap 10 mmol/L BUN 12 (7-17) mg/dL Creatinine 0.72 (0.52-1.04) mg/dL Est GFR (CKD-EPI)AfAm >90 (>60 ml/min/1.73 sqM) Est GFR (CKD-EPI)NonAf >90 (>60 ml/min/1.73 sqM) Glucose 95 (74-99) mg/dL Calcium 9.8 (8.4-10.2) mg/dL Total Bilirubin 0.7 (0.2-1.3) mg/dL AST 36 (14-36) U/L ALT 22 (4-34) U/L Alkaline Phosphatase 58 (38-126) U/L Total Protein 8.0 (6.3-8.2) g/dL Albumin 4.9 (3.5-5.0) g/dL Urine Color Urine Appearance (Clear) Urine pH (5.0-8.0) Ur Specific Meta (1.001-1.035) Urine Protein (Negative) Urine Glucose (UA) (Negative) Urine Ketones (Negative) Urine Blood (Negative) Urine Nitrite (Negative) Urine Bilirubin (Negative) Urine Urobilinogen (<2.0) mg/dL Ur Leukocyte Esterase (Negative) Urine RBC (0-5) /hpf Urine WBC (0-5) /hpf Ur Squamous Epith Cells (0-4) /hpf Urine Bacteria (None) /hpf Urine Mucus (None) /hpf Urine HCG, Qual (Not Detectd) Disposition Clinical Impression: Lymphadenopathy of head and neck Disposition: HOME SELF-CARE Condition: Stable Instructions (If sedation given, give patient instructions): Lymphadenopathy (ED) Additional Instructions: Follow-up with primary care provider and ENT tomorrow. Use nonsteroidal anti inflammatoriies for pain. Return to ER if condition worsens in any way. Is patient prescribed a controlled substance at d/c from ED?: No Referrals: Ashlie Brown NPC [Primary Care Provider] - 1-2 days Giacomo Live DO [Doctor of Osteopathic Medicine] - 1-2 days
[2019-10-17 01:21] VITALS: BP 110/71; PULSE 74; TEMP 98
== END 2019-10-17 01:27 | disposition home or self-care (01) ==
LOC: EC 23:22
DX: R59.0 Localized enlarged lymph nodes (principal); R80.9 Proteinuria, unspecified; R82.4 Acetonuria; G51.0 Bell's palsy; F90.9 Attention-deficit hyperactivity disorder, unspecified type; F41.9 Anxiety disorder, unspecified; F31.9 Bipolar disorder, unspecified; F17.200 Nicotine dependence, unspecified, uncomplicated; Z88.0 Allergy status to penicillin; Z88.6 Allergy status to analgesic agent; Z88.8 Allergy status to other drugs, medicaments and biological substances; Z79.899 Other long term (current) drug therapy
CPT/HCPCS: 36415; 80053; 81001; 81025; 85025; 99284